=== PATIENT | male | born 1995 | race Caucasian/White ===

== ENCOUNTER 2018-06-25 13:14 | Emergency (ER) | payer MEDICARE ==
[~2018-06-25] VITALS: Ht 182.9 cm; Wt 72.6 kg
[2018-06-25 13:15] VITALS: BP_SYST 122
--- NOTE | 2018-06-25 13:20 | NUR ---
BROUGHT BACK TO [facility] AND TRIAGED. WILL ASSUME CARE
--- NOTE | 2018-06-25 13:27 | NUR ---
COLTEN PORTER AT BEDSIDE FOR EVALUATION
--- NOTE | 2018-06-25 13:37 | NUR ---
TAKEN TO RADIOLOGY VIA AMBULATORY
--- NOTE | 2018-06-25 14:01 | NUR ---
COLTEN PORTER AT BEDSIDE FOR RE-EVALUATION
--- NOTE | 2018-06-25 14:25 | NUR ---
PT ELOPED FROM ER WITHOUT PRESCRIPTIONS AND DISCHARGE PAPERWORK
[2018-06-25] MEDS ORDERED: ALBUTEROL SULFATE 0.083% 2.5 MG/3 ML VIAL.NEB INH ONE (18:22)
[2018-06-25] MEDS ORDERED: IPRATROPIUM BROM 0.5 MG/2.5 ML VIAL.NEB (ATROVENT) INH ONE (18:22)
== END 2018-06-25 14:25 | disposition left against medical advice (07) ==
LOC: SED 13:14
DX: S20.212A Contusion of left front wall of thorax, initial encounter (principal); R03.0 Elevated blood-pressure reading, without diagnosis of hypertension; W19.XXXA Unspecified fall, initial encounter; Y93.89 Activity, other specified; Y92.89 Other specified places as the place of occurrence of the external cause; Y99.8 Other external cause status
CPT/HCPCS: 71046-TC; 71100; 99283; J7613